=== PATIENT | female | born 1995 | race Caucasian/White ===

== ENCOUNTER 2020-12-01 06:26 | Inpatient (IN) ==
[2020-12-01] MEDS ORDERED: BETADINE SOLN ONE (06:38)
[2020-12-01] MEDS ORDERED: D5 1/2 NS 1000 ML 1,000 ML IV ONE (06:38)
[2020-12-01] MEDS ORDERED: PITOCIN ONE (06:38)
[2020-12-01] MEDS: D5 1/2 NS 1000 ML 1,000 ML IV SCH (06:45)
[2020-12-01] MEDS ORDERED: D5LR 1L W PITOCIN 10 UNITS/L 10 UNITS/1,000 ML BAG IV PRN (07:00)
[2020-12-01] MEDS ORDERED: PHENERGAN INJ 25 MG IM PRN ×2 (07:22→17:34)
[2020-12-01] MEDS ORDERED: REGLAN INJ 10 MG VIAL IVP PRN (07:22)
[2020-12-01] MEDS ORDERED: PITOCIN IVP ONE (07:22)
[2020-12-01 07:58] LABS: BASOPHILS # (AUTO) 0.1 X10^3/uL (0.0-0.1); BASOPHILS % (AUTO) 0.8 % (0.2-1.0); EOSINOPHILS # (AUTO) 0.1 x10^3/uL (0.0-0.2); EOSINOPHILS % (AUTO) 0.7 % (0.9-2.9); HEMATOCRIT 34.4 % (36.0-47.0); HEMOGLOBIN 11.5 g/dL (12.0-16.0); LYMPHOCYTES # (AUTO) 1.8 X10^3/uL (1.3-2.9); LYMPHOCYTES % (AUTO) 22.5 % (21.0-51.0); MEAN CORPUSCULAR HEMOGLOBIN 28.8 pg (27.0-34.0); MEAN CORPUSCULAR HGB CONC 33.6 g/dL (33.0-35.0); MEAN CORPUSCULAR VOLUME 85.9 fL (80.0-100.0); MEAN PLATELET VOLUME 8.7 fL (7.4-11.0); MONOCYTES # (AUTO) 0.5 x10^3/uL (0.3-0.8); MONOCYTES % (AUTO) 6.1 % (0.0-13.0); NEUTROPHILS # (AUTO) 5.7 x10^3/uL (2.2-4.8); NEUTROPHILS % (AUTO) 69.9 % (42.0-75.0); PLATELET COUNT 308 X10^3/uL (150.0-450.0); RED CELL DISTRIBUTION WIDTH 13.8 % (11.6-16.5); WHITE BLOOD COUNT 8.2 X10^3/uL (3.6-10.0)
[2020-12-01 08:01] LABS: BLOOD UREA NITROGEN 7 mg/dL (7-18); CALCIUM 9.1 mg/dL (8.5-10.1); CARBON DIOXIDE 25.2 mmol/L (21-32); CHLORIDE 105 mmol/L (98-107); CREATININE 0.75 mg/dL (0.55-1.02); SODIUM 138 mmol/L (136-145); eGFR NON BLACK RACES > 60 (>60)
[2020-12-01] MEDS ORDERED: STADOL INJ IVP PRN (10:06)
[2020-12-01] MEDS: STADOL INJ ONE ×2 (11:39→11:43)
[2020-12-01] MEDS ORDERED: FENTANYL INJ 100 mcg ONE ×2 (13:50→13:51)
[2020-12-01] MEDS ORDERED: LR 1000 ML IV 1,000 ML IV ONE (13:50)
[2020-12-01] MEDS ORDERED: NAROPIN EPIDURAL 0.2% 100 ML ONE (13:51)
[2020-12-01] MEDS ORDERED: XYLOCAINE 1 % (PLAIN) ONE (16:13)
[2020-12-01] MEDS ORDERED: BETADINE SURGICAL SCRUB ONE (16:39)
[2020-12-01] MEDS ORDERED: MOTRIN TAB 800 MG PO PRN (17:34)
[2020-12-01] MEDS: D5 1/2 NS 1000 ML 1,000 ML with PITOCIN 20 UNITS IV SCH ×2 (17:55)
[2020-12-01] MEDS ORDERED: HEMABATE IM ONE ×2 (18:00→18:03)
[2020-12-01] MEDS ORDERED: TORADOL 15 MG VIAL IVP SCH (19:00)
[2020-12-02] MEDS ORDERED: BETADINE SOLN ONE (02:48)
[2020-12-02] MEDS: TORADOL 15 MG VIAL IVP SCH ×3 (03:20→08:30)
[2020-12-02] MEDS: D5 1/2 NS 1000 ML 1,000 ML IV SCH ×2 (03:34→08:29)
[2020-12-02] MEDS: D5 1/2 NS 1000 ML 1,000 ML with PITOCIN 20 UNITS IV SCH ×4 (03:35→10:09)
--- NOTE | 2020-12-02 08:28 | NOTE.PROOB ---
progress Note OB- Subjective Data Subjective: No complaints, decreased lochia. Tolerating regular diet. No N/V. Ambulating well. No dysuria. Objective Data Result Diagrams: 12/01/20 07:45 12/01/20 07:45 Objective Data: CV= RRR no MRG Lungs=CTA Bilaterally Abd=(+) BS, soft, NTND, Fundus firm/NT/ at 3 cm below umbilicus. Ext=no edema, NT, no cords Plan (1) Vaginal delivery: Plan: doing well and likely to go home later today (2) Gestational hypertension:
[2020-12-02 12:02] VITALS: BP 116/66
== END 2020-12-02 13:50 | disposition home or self-care (01) | DRG 797 ==
LOC: LD 06:26 → MED/SURG 18:45
PROVIDERS: ADMIT Obstetrics & Gynecology; ATTEND Obstetrics & Gynecology
DX: O70.1 Second degree perineal laceration during delivery; Z37.0 Single live birth; Z20.822 Contact with and (suspected) exposure to COVID-19; Z3A.37 37 weeks gestation of pregnancy; O13.3 Gestational [pregnancy-induced] hypertension without significant proteinuria, third trimester; O41.03X0 Oligohydramnios, third trimester, not applicable or unspecified